=== PATIENT | male | born 1975 | race Caucasian/White ===

== ENCOUNTER 2016-12-08 17:31 | Emergency (ER) | payer BC, OTHER ==
[~2016-12-08] VITALS: Ht 180.3 cm; Wt 97.5 kg
--- NOTE | 2016-12-08 17:53 | ED Upper Extremity ---
General Stated Complaint: R THUMB INJURY Source: patient Exam Limitations: no limitations History of Present Illness Time seen by provider: 17:52 Initial Comments To ER with pain in the right thumb after falling on it today. He believes he jammed it. He does not recall any particular hyperextension type injury. Onset: just prior to arrival Severity: moderate Pain/Injury Location: right thumb Method of Injury: fell Modifying Factors: Worse With Movement Constitutional: see HPI EENTM: see HPI Respiratory: no symptoms reported Cardiovascular: no symptoms reported Genitourinary: no symptoms reported Musculoskeletal: see HPI Skin: no symptoms reported Psychiatric/Neurological: No Symptoms Reported Past Dzcwpth-Bqrztt-Dzjuri Hx Patient Social History Recent Foreign Travel: No Contact w/Someone Who Travel: No Physical Exam Vital Signs Vital Sign - Last 12Hours 12/08/16 17:54 Temp 96.6 Pulse 70 Resp 16 B/P (MAP) 149/106 Pulse Ox 99 O2 Delivery Room Air Capillary Refill : General Appearance: WD/WN, no apparent distress HEENT: PERRL/EOMI, normal ENT inspection Neck: non-tender, full range of motion Respiratory: no respiratory distress, no accessory muscle use Gastrointestinal: normal bowel sounds, non tender, soft Shoulder: normal inspection Elbow/Forearm: normal inspection, Right Wrist: Yes normal inspection, Yes non-tender Hand: normal inspection, non-tender, Right Neurologic/Psychiatric: alert, normal mood/affect, oriented x 3 Skin: normal color, warm/dry Progress/Results/Core Measures Results/Orders My Orders Orders - SHERRY ALCARAZ APRN Hand, Right, 3 Views (12/08/16 17:52) Vital Signs/I&O Vital Sign - Last 12Hours 12/08/16 17:54 Temp 96.6 Pulse 70 Resp 16 B/P (MAP) 149/106 Pulse Ox 99 O2 Delivery Room Air Departure Impression Impression: Primary Impression: Thumb fracture Disposition: 01 HOME, SELF-CARE Condition: Stable Departure-Patient Inst. Decision time for Depature: 18:32 Referrals: NO,LOCAL PHYSICIAN (PCP) Primary Care Physician GORDON CERVANTES DO Patient Instructions: Finger Fracture Add. Discharge Instructions: 1. WEar the splint as directed for the next 2-3 weeks 2. Return to ER for any concerns 3. If persistent pain or laxity of the thumb joint, follow up with the hand surgeon listed. Scripts Hydrocodone/Acetaminophen (Campbell 5-325 Tablet) 1 Each Tablet 1 EACH PO Q4H Y for PAIN-MODERATE TO SEVERE, #14 TAB Prov: SHERRY ALCARAZ APRN 12/08/16 SHERRY ALCARAZ APRN December 08, 2016 17:53
[2016-12-08] MEDS ORDERED: HYDR-757 PO (19:02)
--- NOTE | 2016-12-08 19:12 | Diagnostic Imaging Report ---
INDICATION: Pain and swelling. 4 views were obtained. FINDINGS: The alignment is normal. There is a questionable minimally displaced fracture through the base of the distal phalanx of the thumb. There is no other fracture or dislocation. Soft tissues are unremarkable. IMPRESSION: Questionable minimally displaced fracture through the base of the distal phalanx of the right thumb. Recommend clinical correlation. No other fracture or dislocation. Dictated by: Dictated on workstation # [id number]
[2016-12-08] MEDS ORDERED: RX-HYDROCODONE/APAP 5/325 MG #4 TAB PK PO PRN (19:15)
[2016-12-08 19:30] VITALS: BP 148/94
== END 2016-12-08 19:27 | disposition home or self-care (01) ==
LOC: ER 17:35
DX: S62.521A Displaced fracture of distal phalanx of right thumb, initial encounter for closed fracture (principal); W01.0XXA Fall on same level from slipping, tripping and stumbling without subsequent striking against object, initial encounter; Y99.8 Other external cause status
CPT/HCPCS: 29130; 73130